=== PATIENT | female | born 1995 | race Caucasian/White ===

== ENCOUNTER → 2018-04-14 11:11 | Outpatient (CLI) | payer MEDICAID, SELFPAY ==
--- NOTE | 2018-04-14 11:18 | DI.REPORT_ITS ---
SYMPTOMS/DIAGNOSIS: TRAUMA LT FOOT LEFT FOOT: Soft tissue swelling is noted over the dorsum of the foot. No fracture or dislocation is demonstrated.
== END ==
PROVIDERS: PCP Nurse Practitioner Family; Visit Provider Family Medicine
DX: M79.672 Pain in left foot (principal); M79.89 Other specified soft tissue disorders; S99.922A Unspecified injury of left foot, initial encounter
CPT/HCPCS: 73630

== ENCOUNTER 2018-05-09 14:37 | Outpatient (CLI) | payer MEDICAID, SELFPAY ==
[2018-05-10 11:38] LABS: Varicella IgG Antibody Negative
== END 2018-05-09 14:57 ==
PROVIDERS: PCP Nurse Practitioner Family; Visit Provider Psychiatry & Neurology Neurology
DX: G35 Multiple sclerosis (principal)
CPT/HCPCS: 36415; 86787; 88184; 88185

== ENCOUNTER 2018-06-15 01:40 | Outpatient (RCR) | payer MEDICAID, SELFPAY ==
[2018-06-13] MEDS: Normal Saline Flush 10 ML SYR IVP (07:55)
[2018-06-14] MEDS: Normal Saline Flush 10 ML SYR IVP (07:20)
[2018-06-15] MEDS: Normal Saline Flush 10 ML SYR IVP (07:08)
== END 2018-06-15 23:59 | disposition home or self-care (01) ==
LOC: INF 01:40
PROVIDERS: PCP Nurse Practitioner Family; Visit Provider Psychiatry & Neurology Neurology
DX: G35 Multiple sclerosis (principal)
CPT/HCPCS: 96365; J2930

== ENCOUNTER 2018-06-17 01:39 | Outpatient (RCR) | payer MEDICAID, SELFPAY ==
[2018-06-16] MEDS: Normal Saline Flush 10 ML SYR IVP (07:18)
[2018-06-17] MEDS: Normal Saline Flush 10 ML SYR IVP (07:50)
== END 2018-07-15 23:59 | disposition home or self-care (01) ==
LOC: INF 01:39
PROVIDERS: PCP Nurse Practitioner Family; Visit Provider Psychiatry & Neurology Neurology
DX: G35 Multiple sclerosis (principal)
CPT/HCPCS: 96365; J2930

== ENCOUNTER 2018-08-10 00:40 | Outpatient (RCR) | payer MEDICAID, SELFPAY ==
[2018-08-10] VITALS (8 sets, daily range): BP systolic 109–139; BP diastolic 59–92; PULSE 66–122; RESP 18; TEMP 36.4–36.5; O2SAT 98–99
[2018-08-10] MEDS: Acetaminophen 325 MG TAB 650 MG PO (08:59)
[2018-08-10] MEDS: diphenhydrAMINE 50 MG/ML VIAL IV (08:59)
[2018-08-10] MEDS: Dexamethasone 10 MG/ML VIAL IV (08:59)
[2018-08-10] MEDS: Normal Saline Flush 10 ML SYR IVP (09:00)
== END 2018-08-15 23:59 | disposition home or self-care (01) ==
LOC: INF 00:40
PROVIDERS: PCP Nurse Practitioner Family; Visit Provider Psychiatry & Neurology Neurology
DX: G35 Multiple sclerosis (principal)
CPT/HCPCS: 96365; 96366; J1100; J1200; J9310

== ENCOUNTER 2018-08-26 00:33 | Outpatient (RCR) | payer MEDICAID, SELFPAY ==
[2018-08-26 08:54] VITALS: BP 122/76; PULSE 84; RESP 18; TEMP 36.7; O2SAT 99
[2018-08-26] MEDS: diphenhydrAMINE 50 MG/ML VIAL IV (09:06)
[2018-08-26] MEDS: Dexamethasone 10 MG/ML VIAL IV (09:07)
[2018-08-26] MEDS: Normal Saline Flush 10 ML SYR IVP ×2 (09:19→12:42)
[2018-08-26] MEDS: Acetaminophen 325 MG TAB 650 MG PO (09:21)
[2018-08-26 09:25] VITALS: BP 108/63; PULSE 70; RESP 18; TEMP 36.5; O2SAT 100
[2018-08-26 09:38] VITALS: BP 130/70; PULSE 76; RESP 18; TEMP 36.7; O2SAT 98
[2018-08-26 09:44] VITALS: BP 115/65; PULSE 98; RESP 18; TEMP 36.5; O2SAT 98
[2018-08-26 10:19] VITALS: BP 114/51; PULSE 64; RESP 18; TEMP 36.5; O2SAT 98
[2018-08-26 10:45] VITALS: BP 131/66; PULSE 68; RESP 18; TEMP 36.5; O2SAT 99
== END 2018-09-15 23:59 | disposition home or self-care (01) ==
LOC: INF 00:33
PROVIDERS: PCP Nurse Practitioner Family; Visit Provider Psychiatry & Neurology Neurology
DX: G35 Multiple sclerosis (principal)
CPT/HCPCS: 96365; 96366; J1100; J1200; J9310

== ENCOUNTER 2019-01-27 01:48 | Outpatient (CLI) | payer MEDICAID, SELFPAY ==
--- NOTE | 2019-01-27 10:48 | DI.MRI_ITS ---
SYMPTOM/DIAGNOSIS: STABLE MS, ON NEW TREATMENT, G35 BRAIN MRI: Pre and post contrast examination was performed. Comparison examination is from [facility] dated 03/07/18. There are again seen multiple periventricular and white matter hyperintense foci appreciated on the FLAIR and T 2 weighted images. There is a new focus seen in the periventricular white matter bilaterally since 03/07/18 (series 7, image 16). Neither of these lesions show enhancement. There is also new hyperintense focus in the right frontal lobe. This does not show enhancement. The ventricles and sulci are stable. There is no acute midline shift or mass effect. The diffusion weighted images show no evidence of restricted diffusion. No intracranial hemorrhage is seen. Following contrast administration, no enhancement is present. There is a normal flow void in the [place]. The visualized paranasal sinuses appear clear. IMPRESSION: 1. New white matter hyperintense foci in the periventricular region in the right frontal lobe since 03/07/18. No lesional enhancement is identified.
[2019-01-27] MEDS: Normal Saline Flush 10 ML SYR IVP (11:41)
[2019-01-27] MEDS: Gadoterate meglumine 20 ML VIAL 10 ML IVP (11:43)
== END 2019-01-27 02:08 ==
PROVIDERS: PCP Nurse Practitioner Family; Visit Provider Psychiatry & Neurology Neurology
DX: G35 Multiple sclerosis (principal); Z79.899 Other long term (current) drug therapy
CPT/HCPCS: 70553

== ENCOUNTER 2019-02-27 01:56 | Outpatient (RCR) | payer MEDICAID, SELFPAY ==
[2019-02-27 08:10] VITALS: BP 116/73; PULSE 73; RESP 18; TEMP 36.2; O2SAT 100
[2019-02-27] MEDS: Acetaminophen 325 MG TAB 650 MG PO (08:10)
[2019-02-27] MEDS: diphenhydrAMINE 50 MG/ML VIAL IV (08:10)
[2019-02-27] MEDS: Dexamethasone 10 MG/ML VIAL IV (08:11)
[2019-02-27] MEDS: Normal Saline Flush 10 ML SYR IVP (08:12)
[2019-02-27 08:30] VITALS: BP 110/72; PULSE 50; RESP 16; TEMP 36.2
[2019-02-27 09:00] VITALS: BP 101/66; PULSE 48; RESP 16; TEMP 36.4
[2019-02-27 09:30] VITALS: BP 99/62; PULSE 56; RESP 16; TEMP 36.3; O2SAT 99
[2019-02-27 10:00] VITALS: BP 103/66; PULSE 57; RESP 16; TEMP 36.4; O2SAT 100
[2019-02-27 11:30] VITALS: BP 96/57; PULSE 53; RESP 16; TEMP 36.4; O2SAT 100
[2019-02-28 10:47] LABS: IgA 249 mg/dL (85-499); IgG 1039 mg/dL (610-1616); IgM 120 mg/dL (35-242)
== END 2019-03-15 23:59 | disposition home or self-care (01) ==
LOC: INF 01:56
PROVIDERS: PCP Nurse Practitioner Family; Visit Provider Psychiatry & Neurology Neurology
DX: G35 Multiple sclerosis (principal)
CPT/HCPCS: 36415; 82784; 96365; 96366; J1100; J1200; J9310

== ENCOUNTER 2019-08-30 13:56 | Outpatient (CLI) | payer MEDICAID, SELFPAY ==
[2019-08-31 04:42] LABS: Vitamin D 25 Total 13.9 ng/ml (30-100)
[2019-08-31 15:56] LABS: CD19 2 %; CD20 2 %
== END 2019-08-30 14:16 ==
PROVIDERS: PCP Nurse Practitioner Family; Visit Provider Psychiatry & Neurology Neurology
DX: G35 Multiple sclerosis (principal)
CPT/HCPCS: 36415; 82306; 88184; 88185

== ENCOUNTER 2019-09-11 02:09 | Outpatient (RCR) | payer MEDICAID, SELFPAY ==
[2019-09-11] VITALS (7 sets, daily range): BP systolic 100–124; BP diastolic 62–84; PULSE 69–107; RESP 17–19; TEMP 36.5–36.7; O2SAT 99–100
[2019-09-11] MEDS: diphenhydrAMINE 50 MG/ML VIAL IVP (08:59)
[2019-09-11] MEDS: Dexamethasone 10 MG/ML VIAL IVP (08:59)
[2019-09-11] MEDS: Normal Saline Flush 10 ML SYR IVP ×2 (09:00→09:19)
[2019-09-11] MEDS: Acetaminophen 325 MG TAB 650 MG PO (09:00)
== END 2019-09-15 23:59 | disposition home or self-care (01) ==
LOC: INF 02:09
PROVIDERS: PCP Nurse Practitioner Family; Visit Provider Psychiatry & Neurology Neurology
DX: G35 Multiple sclerosis (principal)
CPT/HCPCS: 96365; 96366; 96413; 96415; J1100; J1200; J9312

== ENCOUNTER 2020-02-12 01:58 | Outpatient (RCR) | payer MEDICAID, SELFPAY ==
[2020-02-12] VITALS (8 sets, daily range): BP systolic 105–137; BP diastolic 66–79; PULSE 66–105; RESP 18–19; TEMP 36–36.6; O2SAT 97–100
[2020-02-12] MEDS: Acetaminophen 325 MG TAB 650 MG PO (09:39)
[2020-02-12] MEDS: diphenhydrAMINE 50 MG/ML VIAL IV (09:41)
[2020-02-12] MEDS: Dexamethasone 10 MG/ML VIAL IV (09:44)
[2020-02-12 10:27] LABS: ALT 25 U/L (14-59); AST 21 U/L (15-37); Albumin 3.9 g/dL (3.4-5.0); Alkaline Phosphatase 77 U/L (46-116); Anion Gap 9.8 mmol/L (3-11); BUN 13 mg/dL (7-18); Bilirubin, Total 0.4 mg/dL (0.2-1.0); CO2 26.2 mmol/L (21.0-32.0); CREATININE 0.75 mg/dL (0.55-1.02); Calcium 8.9 mg/dL (8.5-10.1); Chloride 105 mmol/L (98-107); Glucose 102 mg/dL (74-106); Potassium 3.7 mmol/L (3.5-5.1); Sodium 141 mmol/L (136-145); Total Protein 7.6 g/dL (6.4-8.2)
[2020-02-12] MEDS: Normal Saline Flush 10 ML SYR IVP (13:16)
== END 2020-02-13 23:59 | disposition home or self-care (01) ==
LOC: INF 01:58
PROVIDERS: PCP Nurse Practitioner Family; Visit Provider Psychiatry & Neurology Neurology
DX: G35 Multiple sclerosis (principal)
CPT/HCPCS: 80053; 96365; 96366; 96374; 96375; 96413; 96415; J1100; J1200; J9312

== ENCOUNTER 2020-02-19 02:00 | Outpatient (CLI) | payer MEDICAID, SELFPAY ==
[2020-02-19 14:16] LABS: Abs Immature Grans 0.01 k/cumm (0.0-0.09); Absolute Basophil Count 0.02 k/cumm (0.0-0.2); Absolute Eosinophil Count 0.19 k/cumm (0.0-0.7); Absolute Lymphocyte Count 2.08 k/cumm (1.2-3.4); Absolute Monocyte Count 1.04 k/cumm (0.11-0.7); Absolute Neutrophil Count 6.46 k/cumm (1.2-6.7); Basophils % 0.2; Eosinophils % 1.9; HCT 43.5 % (36.0-46.0); Immature Grans % 0.1 %; Lymphocytes % 21.2; Mean Corp. HGB Concentration 32.2 g/dL (32.0-36.0); Mean Corpuscular Hemoglobin 30.3 pg (27.0-33.0); Mean Corpuscular Volume 94.2 fL (80-95); Mean Platelet Volume 11.4 fL (8.0-11.0); Monocytes % 10.6; Platelet Count 319 x1000/uL (130-400); RBC 4.62 m/cumm (4.00-5.20); RBC Distribution Width 12.9 % (11.7-14.6)
[2020-02-20 10:38] LABS: IgA 282 mg/dL (85-499); IgG 997 mg/dL (610-1,616); IgM 85 mg/dL (35-242)
[2020-02-20 16:36] LABS: CD19 <1 %; CD20 <1 %
== END 2020-02-19 02:20 ==
PROVIDERS: PCP Nurse Practitioner Family; Visit Provider Psychiatry & Neurology Neurology
DX: G35 Multiple sclerosis (principal)
CPT/HCPCS: 36415; 82784; 88184; 88185; 85025

== ENCOUNTER 2020-07-19 05:21 | Outpatient (RCR) | payer MEDICAID, SELFPAY ==
[2020-07-19] MEDS: Acetaminophen 325 MG TAB 650 MG PO (08:43)
[2020-07-19] MEDS: Dexamethasone 10 MG/ML VIAL IVP (09:41)
[2020-07-19] MEDS: diphenhydrAMINE 50 MG/ML VIAL IVP (09:42)
[2020-07-19] MEDS: Normal Saline Flush 10 ML SYR IVP (09:42)
[2020-07-19 09:50] VITALS: BP 118/59; PULSE 71; RESP 14; TEMP 36.2; O2SAT 99
[2020-07-19 10:03] LABS: Abs Immature Grans 0.02 10^3/uL (0.0-0.06); Absolute Basophil Count 0.04 10^3/uL (0.0-0.2); Absolute Eosinophil Count 0.15 10^3/uL (0.0-0.7); Absolute Lymphocyte Count 1.47 10^3/uL (1.2-3.4); Absolute Monocyte Count 0.64 10^3/uL (0.1-0.8); Absolute Neutrophil Count 5.61 10^3/uL (1.2-6.7); Basophils % 0.5; Eosinophils % 1.9; HCT 39.1 % (36.0-46.0); HGB 12.7 g/dL (11.2-15.7); Immature Grans % 0.3; Lymphocytes % 18.5; MCH 30.2 pg (27.0-33.0); MCHC 32.5 % (32.0-36.0); MCV 92.9 fL (80-95); Monocytes % 8.1; Neutrophils % 70.7; Nucleated RBC 0 %; Platelet Count 272 10^3/uL (130-400); RBC 4.21 10^6/uL (3.93-5.22); RDW 12.6 % (11.7-14.6); RDW-SD 42.6 fL; WBC 7.93 10^3/uL (4.4-10.8)
[2020-07-19 10:18] LABS: ALT 12 U/L (14-59); AST 11 U/L (15-37); Albumin 3.3 g/dL (3.4-5.0); Alkaline Phosphatase 56 U/L (46-116); Anion Gap 7.5 mmol/L (3-11); BUN 10 mg/dL (7-18); Bilirubin, Total 0.3 mg/dL (0.2-1.0); CO2 22.5 mmol/L (21.0-32.0); CREATININE 0.67 mg/dL (0.55-1.02); Calcium 7.8 mg/dL (8.5-10.1); Chloride 106 mmol/L (98-107); Glucose 94 mg/dL (74-106); Potassium 3.4 mmol/L (3.5-5.1); Sodium 136 mmol/L (136-145); Total Protein 6.8 g/dL (6.4-8.2)
[2020-07-19 10:20] VITALS: BP 111/64; PULSE 71; RESP 16; TEMP 36.7; O2SAT 98
[2020-07-19 10:50] VITALS: BP 115/60; PULSE 69; RESP 16; TEMP 36.3; O2SAT 98
[2020-07-19 11:30] VITALS: BP 102/65; PULSE 76; RESP 16; TEMP 36.3; O2SAT 97
[2020-07-19 12:00] VITALS: BP 110/62; PULSE 69; RESP 14; TEMP 36.4; O2SAT 98
[2020-07-22 05:49] LABS: Vitamin D 25 Total 25.1 ng/ml (30-100)
[2020-07-22 09:46] LABS: IgA 266 mg/dL (85-499); IgG 1009 mg/dL (610-1,616); IgM 73 mg/dL (35-242)
[2020-07-22 15:30] LABS: CD19 1 %; CD20 1 %
== END 2020-08-15 23:59 | disposition home or self-care (01) ==
LOC: INF 05:21
PROVIDERS: PCP Nurse Practitioner Family; Visit Provider Psychiatry & Neurology Neurology
DX: G35 Multiple sclerosis (principal)
CPT/HCPCS: 36415; 80053; 82306; 82784; 88184; 88185; 96365; 96366; 96375; 85025; J1100; J1200; J9312

== ENCOUNTER 2020-12-20 08:00 | Outpatient (RCR) | payer MEDICAID, SELFPAY ==
[2020-12-20] VITALS (7 sets, daily range): BP systolic 101–126; BP diastolic 67–79; PULSE 56–77; RESP 12–17; TEMP 36.4–37.1; O2SAT 97–100
[2020-12-20] MEDS: Acetaminophen 325 MG TAB 650 MG PO (08:13)
[2020-12-20] MEDS: diphenhydrAMINE 50 MG/ML VIAL IVP (08:13)
[2020-12-20] MEDS: Dexamethasone 10 MG/ML VIAL IVP (08:14)
[2020-12-20] MEDS: Normal Saline Flush 10 ML SYR IVP (08:17)
[2020-12-20 09:34] LABS: Abs Immature Grans 0.01 10^3/uL (0.0-0.06); Absolute Basophil Count 0.05 10^3/uL (0.0-0.2); Absolute Eosinophil Count 0.11 10^3/uL (0.0-0.7); Absolute Lymphocyte Count 1.34 10^3/uL (1.2-3.4); Absolute Monocyte Count 0.41 10^3/uL (0.1-0.8); Absolute Neutrophil Count 4.82 10^3/uL (1.2-6.7); Basophils % 0.7; Eosinophils % 1.6; HCT 41.1 % (36.0-46.0); HGB 13.3 g/dL (11.2-15.7); Immature Grans % 0.1; Lymphocytes % 19.9; MCH 30.1 pg (27.0-33.0); MCHC 32.4 % (32.0-36.0); MPV 11.3 fL (8.0-11.0); Monocytes % 6.1; Neutrophils % 71.6; Nucleated RBC 0 %; Platelet Count 283 10^3/uL (130-400); RBC 4.42 10^6/uL (3.93-5.22); RDW 12.7 % (11.7-14.6); RDW-SD 43.6 fL; WBC 6.74 10^3/uL (4.4-10.8)
[2020-12-20 09:50] LABS: ALT 18 U/L (14-59); AST 13 U/L (15-37); Albumin 3.6 g/dL (3.4-5.0); Alkaline Phosphatase 59 U/L (46-116); Anion Gap 8.1 mmol/L (3-11); BUN 8 mg/dL (7-18); Bilirubin, Total 0.4 mg/dL (0.2-1.0); CO2 27.9 mmol/L (21.0-32.0); CREATININE 0.8 mg/dL (0.55-1.02); Calcium 8.7 mg/dL (8.5-10.1); Chloride 104 mmol/L (98-107); Glucose 90 mg/dL (74-106); Potassium 3.7 mmol/L (3.5-5.1); Sodium 140 mmol/L (136-145); Total Protein 7.4 g/dL (6.4-8.2)
[2020-12-23 09:54] LABS: IgA 271 mg/dL (85-499); IgG 1055 mg/dL (610-1,616); IgM 72 mg/dL (35-242)
== END 2021-01-13 23:59 | disposition home or self-care (01) ==
LOC: INF 08:00
PROVIDERS: PCP Nurse Practitioner Family; Visit Provider Psychiatry & Neurology Neurology
DX: G35 Multiple sclerosis (principal)
CPT/HCPCS: 36415; 80053; 82784; 96365; 96366; 96374; 96375; 96413; 96415; 85025; J1100; J1200; J9312